=== PATIENT | female | born 1965 | race African-American/Black ===

== ENCOUNTER 2020-11-19 08:33 | Outpatient (CLI) | payer OTHER, SELFPAY ==
--- NOTE | 2020-11-21 10:29 | WPDPFTINT ---
PFT Interpretation This PFT met all criteria for ATS standards and reproducibility FEV/FVC pre bronchodilator was 64% which improved to 76% post bronchodilator FEV1 76% or 1.59 liters FVC 81% FEV1 Improved by 17% and 240 mL TLC 78% RV 64% RV/TLC 32% DLCO 91% when adjusted for alveolar volume but not adjusted for hemoglobin Flow volume loops showed significant expiratory coving Impression: moderate airflow obstruction with good response to bronchodilators. A mild restrictive component is also present but this most likely is due to her obesity. Overall this pattern is consistent with reactive airway disease or asthma in the setting of obesity. Clinical correlation is advised.
== END 2020-11-19 08:34 | disposition home or self-care (01) ==
PROVIDERS: Visit Provider Nurse Practitioner
DX: J45.909 Unspecified asthma, uncomplicated (principal); R94.2 Abnormal results of pulmonary function studies
CPT/HCPCS: 94060; 94726; 94729